=== PATIENT | male | born 1970 | race Caucasian/White ===

== ENCOUNTER 2021-04-04 13:44 | Outpatient (CLI) | payer SELFPAY ==
[2021-04-04 14:30] VITALS: BP 135/86; PULSE 77; RESP 17; TEMP 36.6; O2SAT 99; BMI 34.7
[2021-04-04 15:03] VITALS: BP 135/87; PULSE 68; RESP 18; TEMP 36.7; O2SAT 94
[2021-04-04 16:03] VITALS: BP 128/86; PULSE 57; RESP 18; O2SAT 97
== END 2021-04-04 13:45 | disposition home or self-care (01) ==
LOC: OPS 13:53
PROVIDERS: PCP Nurse Practitioner Family; Visit Provider Nurse Practitioner Family
DX: U07.1 COVID-19 (principal)
CPT/HCPCS: 96365